=== PATIENT | female | born 1975 | race Caucasian/White ===

== ENCOUNTER 2016-05-27 13:10 | Emergency (ER) | payer OTHER ==
[~2016-05-27 13:10] MED LIST: ANXIETY MED PO; ARMOUR THYROID15 MG PO; BETABLOCKER PO; CYCLOBENZAPRINE10 MG PO; HYCODAN,HYDROME10 ML PO; MEDROL DOSEPAK4 MG PO; METHIMAZOLE5 M1 PO; NAPROSYN500 MG PO; NEURONTIN100 MG PO; NEURONTIN300 MG PO; NORCO 325 MG-101 TAB PO; NORCO 325 MG-51 TAB PO; OMNICEF300 MG PO; PARAFON FORTE500 MG PO; PREDNISONE20 M1 PO; PROPRANOLOL HCL10 MG PO; PROVENTIL0.09 MG/A1 INH; REQUIP0.5 MG PO; ROBITUSSIN AC 110 ML PO; TAPAZOLE PO; TESSALON PERLE100 M1 PO; THE MEDICINE S400 IU PO; VENTOLIN H0.09 MG/AC INH; VISTARIL25 MG PO; ZYRTEC10 MG PO
[2016-05-27 13:16] VITALS: BP 104/72
[2016-05-27] MEDS ORDERED: CEPHALEXIN500 M1 PO (15:13)
[2016-05-27] MEDS ORDERED: NAPROSYN500 MG PO (15:13)
[2016-05-27] MEDS ORDERED: BACTRIM DS 8001 TA1 PO (15:13)
== END 2016-05-27 15:19 | disposition home or self-care (01) ==
LOC: ED 13:10
DX: L02.611 Cutaneous abscess of right foot (principal); F17.200 Nicotine dependence, unspecified, uncomplicated

== ENCOUNTER 2016-05-30 12:33 | Emergency (ER) | payer OTHER ==
[~2016-05-30] VITALS: Ht 170.1 cm; Wt 51.7 kg
[~2016-05-30 12:33] MED LIST changes: +BACTRIM DS 8001 TA1 PO; +CEPHALEXIN500 M1 PO
[2016-05-30 13:06] VITALS: BP 122/80
[2016-05-30] MEDS ORDERED: HYDROCODONE BIT1 T11 PO (15:41)
== END 2016-05-30 15:49 | disposition home or self-care (01) ==
LOC: ED 12:33
DX: L02.611 Cutaneous abscess of right foot (principal); L03.115 Cellulitis of right lower limb; F17.200 Nicotine dependence, unspecified, uncomplicated

== ENCOUNTER → 2019-06-22 | Outpatient (CLI) | payer OTHER ==
[~2019-06-22] MED LIST changes: +AMINOPHYLLIN200 MG PO; +ANUSOL-HC25 MG R; +CEFUROXIME AXE500 MG PO; +HYDROCODONE BIT1 T11 PO
== END | disposition home or self-care (01) ==
LOC: MAMMO 08:30
DX: Z12.31 Encounter for screening mammogram for malignant neoplasm of breast (principal)

== ENCOUNTER 2019-06-30 12:39 | Emergency (ER) | payer OTHER ==
[~2019-06-30] VITALS: Ht 170.1 cm; Wt 51.7 kg
[~2019-06-30 12:39] MED LIST changes: -AMINOPHYLLIN200 MG PO; -ANUSOL-HC25 MG R; -CEFUROXIME AXE500 MG PO
[2019-06-30 12:46] VITALS: BP 116/60
[2019-06-30 13:20] LABS: BASO % 0.7 % (0.0-1.0); EOS # 0.1 10*3/uL (0.0-0.4); EOS % 1.8 % (1.0-4.0); HEMATOCRIT 37.5 % (37.0-47.0); LYMPH # 1.8 10*3/uL (1.3-4.4); LYMPH % 32.8 % (27.0-41.0); MEAN CELL VOLUME 89.9 fl (81.0-99.0); MEAN CORPUSCULAR HGB 31.2 pg (27.0-31.0); MEAN CORPUSCULAR HGB CONC 34.7 g/dl (33.0-37.0); MEAN PLATELET VOLUME 10.1 fl (9.6-12.3); MONO # 0.4 10*3/uL (0.1-1.0); NEUT # 3.1 10*3/uL (2.3-7.9); NEUT % 57.5 % (47.0-73.0); PLATELET COUNT AUTOMATED 242 10*3/uL (130-400); RED BLOOD COUNT 4.17 10*6/uL (4.10-5.10); RED CELL DISTRI WIDTH 11.9 % (0-14.5); WHITE BLOOD COUNT 5.4 10*3/uL (4.8-10.8)
[2019-06-30 13:30] LABS: INTERNATIONAL NORM RATIO 0.9 (2.0-3.5)
[2019-06-30 13:39] LABS: ALBUMIN 3.8 gm/dl (3.1-4.5); ALKALINE PHOSPHATASE 59 U/L (45-117); BUN 16 mg/dl (7-24); CHLORIDE 111 mmol/L (98-107); CREATININE 0.73 mg/dL (0.55-1.02); POTASSIUM 4.1 mmol/L (3.5-5.1); SGOT/AST 16 IU/L (3-35); SGPT/ALT 37 U/L (12-78); SODIUM 140 mmol/L (136-145); TOTAL PROTEIN 6.6 gm/dL (6.4-8.2)
[2019-06-30 14:00] LABS: BILIRUBIN NEGATIVE (NEGATIVE); BLOOD NEGATIVE (NEGATIVE); CLARITY SL CLOUDY (CLEAR); COLOR YELLOW (YELLOW); GLUCOSE NEGATIVE (NEGATIVE); KETONE NEGATIVE (NEGATIVE)
[2019-06-30 14:01] LABS: BACTERIA 1+; LEUKO ESTERASE TRACE (NEGATIVE); NITRITE NEGATIVE (NEGATIVE); UROBILINOGEN 0.2 E.U./dl (0.2-1.0); WBC 16-20 wbc/hpf (0-5)
[2019-06-30] MEDS ORDERED: ANUSOL-HC25 MG R (16:38)
[2019-06-30] MEDS ORDERED: CEFUROXIME AXE500 MG PO (16:38)
[2019-07-07] MEDS ORDERED: AMINOPHYLLIN200 MG PO (15:18)
== END 2019-06-30 16:47 | disposition home or self-care (01) ==
LOC: ED 12:39
PROVIDERS: Nurse Practitioner Family
DX: K64.9 Unspecified hemorrhoids (principal); N39.0 Urinary tract infection, site not specified; G62.9 Polyneuropathy, unspecified

== ENCOUNTER → 2019-07-09 | Day surgery (SDC) | payer OTHER ==
[~2019-07-09] VITALS: Ht 170.1 cm; Wt 51.7 kg
[~2019-07-09] MED LIST changes: +AMINOPHYLLIN200 MG PO; +ANUSOL-HC25 MG R; +CEFUROXIME AXE500 MG PO
[2019-07-09 08:07] VITALS: BP 99/62
[2019-07-09 08:55] VITALS: BP 88/45
[2019-07-09 09:08] VITALS: BP 91/65
[2019-07-09 09:25] VITALS: BP 101/65
== END | disposition home or self-care (01) ==
LOC: SDC 07-06 10:15
DX: K62.5 Hemorrhage of anus and rectum (principal); K63.5 Polyp of colon; F41.9 Anxiety disorder, unspecified; F32.9 Major depressive disorder, single episode, unspecified; Z79.899 Other long term (current) drug therapy; Z98.890 Other specified postprocedural states; Z82.5 Family history of asthma and other chronic lower respiratory diseases

== ENCOUNTER 2020-03-13 22:32 | Observation (INO) | payer OTHER ==
[~2020-03-13] VITALS: Ht 170.1 cm
--- NOTE | 2020-03-14 00:12 | NUR ---
PT RESTING IN BED WITH EYES CLOSED, NO DISTRESS NOTED, RESP EASY NON LABORED, RN WILL CONTINUE TO MONITOR
--- NOTE | 2020-03-14 03:03 | NUR ---
PT RESTING IN BED WITH EYES CLOSED, NO DISTRESS NOTED, RN WILL CONTINUE TO MONITOR
--- NOTE | 2020-03-14 03:04 | NUR ---
PT STILL UNABLE TO VOID
--- NOTE | 2020-03-14 04:32 | NUR ---
PT RESTING IN BED WITH EYES CLOSED, NO DISTRESS NOTED, RN WILL CONTINUE TO MONITOR
--- NOTE | 2020-03-14 05:30 | NUR ---
PT AMBULATING TO RESTROOM, STILL UNABLE TO VOID, NO URINE COLLECTED
[2020-03-14 13:45] VITALS: BP 100/80
--- NOTE | 2020-03-14 13:45 | NUR ---
The assessment has been completed. JUSTIN SMITH Time: 134 A 44 year old FEMALE admitted to under services of EDDIE SONG DO. Pt. arrived via ambulance from ER. Chief complaint: FROM HOME. PT STATES SHE WAS IN THE HOT TUB SMOKING WEED AND BECAME VERY ANXIOUS AND CALLED EMS.A/O X3. RESPS EASY AND NON LABORED. NO DISTRESS NOTED. JUSTIN SMITH
--- NOTE | 2020-03-14 15:26 | NUR ---
PT C/O 5/10 ACHING LEG PAIN.MEDICATED PER ORDER. RESPS EASY AND NON LABORED. SITTING UP IN BED WATCHING TV. CALL LIGHT WITHIN REACH.
--- NOTE | 2020-03-14 15:36 | NUR ---
ORTHOS: 110/84, 80 BPM 108/80, 82 BPM 114/82, 86 BPM
--- NOTE | 2020-03-14 16:26 | NUR ---
MEDICATION APPEARS EFFECTIVE. PT SLEEPING. RESPS EASY AND NON LABORED. CALL LIGHT WITHIN REACH.
--- NOTE | 2020-03-14 16:57 | NUR ---
MESSAGE LEFT W DR MUNIZ REGARDING NEW CONSULT
--- NOTE | 2020-03-15 04:05 | NUR ---
24 HR chart check completed.
--- NOTE | 2020-03-15 11:12 | NUR ---
Interactive Developer in to talk to patient. Patient states lives at HOME with BOYFRIEND, SON AND HIS GIRLFRIEND. There are NO steps in the home. Physician: AVANI Pharmacy: [facility] Home health services: NONE Patient's level of ADLs: INDEPENDENT Patient has working utilities: YES DME: NONE Follow-up physician's appointment after d/c: WILL BE MADE BY HOSPITALIST NURSE DIRECTOR ON DISCHARGE Does patient want to access PORTAL?: NO Discharge plan PT LIVES AT HOME WITH HER BOYFRIEND, HER SON AND HIS GIRLFRIEND AND IS INDEPENDENT IN HER CARE. DECLINES SHE WILL HAVE NEEDS ON DISCHARGE. PLAN IS TO RETURN HOME WHEN MEDICALLY STABLE. WILL CONTINUE TO FOLLOW. STATES SHE WILL HAVE A RIDE HOME.. COURTNEY SEBASTIAN
[2020-03-15 16:00] VITALS: BP 103/64
--- NOTE | 2020-03-15 17:54 | NUR ---
[facility] Discharge instructions reviewed with patient/family. Patient receptive and verbalizes understanding. Follow-up care arranged. Written instructions given to patient/family. CASEY LUGO
== END 2020-03-15 18:11 | disposition home or self-care (01) ==
LOC: ED 22:32 → EDHOLD 03-14 06:29 → 4E 03-14 06:29
PROVIDERS: ADMIT Emergency Medicine; ATTEND Emergency Medicine
DX: R55 Syncope and collapse (principal); N17.0 Acute kidney failure with tubular necrosis; D72.829 Elevated white blood cell count, unspecified; T40.7X1A Poisoning by cannabis (derivatives), accidental (unintentional), initial encounter; E87.1 Hypo-osmolality and hyponatremia; E11.65 Type 2 diabetes mellitus with hyperglycemia; E86.0 Dehydration; E11.42 Type 2 diabetes mellitus with diabetic polyneuropathy; G25.81 Restless legs syndrome; D75.1 Secondary polycythemia; F17.210 Nicotine dependence, cigarettes, uncomplicated

== ENCOUNTER 2021-06-08 13:25 | Emergency (ER) | payer OTHER ==
[~2021-06-08] VITALS: Ht 170.1 cm; Wt 49.9 kg
[~2021-06-08 13:25] MED LIST changes: +CIPRO500 MG PO
[2021-06-08 13:40] VITALS: BP 131/97
== END 2021-06-08 14:38 | disposition left against medical advice (07) ==
LOC: ED 13:25
DX: H92.02 Otalgia, left ear (principal); Z53.21 Procedure and treatment not carried out due to patient leaving prior to being seen by health care provider

== ENCOUNTER → 2021-11-23 | Outpatient (CLI) | payer OTHER ==
[2021-11-23 12:45] LABS: BASO % 0.4 % (0.0-1.0); EOS % 0.4 % (1.0-4.0); HEMATOCRIT 43.4 % (37.0-47.0); LYMPH # 1.9 10*3/uL (1.3-4.4); MEAN CELL VOLUME 92.7 fl (81.0-99.0); MEAN CORPUSCULAR HGB 31.4 pg (27.0-31.0); MEAN CORPUSCULAR HGB CONC 33.9 g/dl (33.0-37.0); MEAN PLATELET VOLUME 9.4 fl (9.6-12.3); MONO # 0.6 10*3/uL (0.1-1.0); NEUT # 6.5 10*3/uL (2.3-7.9); PLATELET COUNT AUTOMATED 265 10*3/uL (130-400); RED BLOOD COUNT 4.68 10*6/uL (4.10-5.10); RED CELL DISTRI WIDTH 12.5 % (0-14.5); WHITE BLOOD COUNT 9.2 10*3/uL (4.8-10.8)
== END | disposition home or self-care (01) ==
LOC: LAB 12:26
PROVIDERS: ATTEND Nurse Practitioner Women's Health
DX: N92.0 Excessive and frequent menstruation with regular cycle (principal); R53.83 Other fatigue

== ENCOUNTER → 2022-03-09 | Day surgery (SDC) | payer OTHER ==
[~2022-03-09] VITALS: Ht 170.1 cm; Wt 51.7 kg
[2022-03-09 09:05] VITALS: BP 94/62; BP 98/69
[2022-03-09 10:12] VITALS: BP 106/82
== END | disposition home or self-care (01) ==
LOC: SDC 03-06 08:00
PROVIDERS: ATTEND Surgery
DX: R19.4 Change in bowel habit (principal); F31.9 Bipolar disorder, unspecified; F41.9 Anxiety disorder, unspecified; F17.210 Nicotine dependence, cigarettes, uncomplicated

== ENCOUNTER → 2022-03-16 | Outpatient (CLI) | payer OTHER | END | disposition home or self-care (01) | LOC: US 12-25 10:30 | PROVIDERS: ATTEND Nurse Practitioner Women's Health | DX: N83.02 Follicular cyst of left ovary (principal); N83.01 Follicular cyst of right ovary; N94.6 Dysmenorrhea, unspecified; N92.0 Excessive and frequent menstruation with regular cycle ==

== ENCOUNTER → 2022-08-01 | Outpatient (CLI) | payer MEDICAID | END | disposition home or self-care (01) | LOC: RAD 13:37 | PROVIDERS: ATTEND Family Medicine | DX: M48.02 Spinal stenosis, cervical region (principal); M54.2 Cervicalgia; M25.512 Pain in left shoulder; M54.50 Low back pain, unspecified ==

== ENCOUNTER 2022-08-09 11:27 | Emergency (ER) | payer MEDICAID ==
[~2022-08-09] VITALS: Wt 58.1 kg
[2022-08-09 11:40] VITALS: BP 118/87
== END 2022-08-09 13:33 | disposition home or self-care (01) ==
LOC: ED 11:27
DX: S20.211A Contusion of right front wall of thorax, initial encounter (principal); F41.9 Anxiety disorder, unspecified; F31.9 Bipolar disorder, unspecified; Z98.51 Tubal ligation status; Z98.890 Other specified postprocedural states; F17.200 Nicotine dependence, unspecified, uncomplicated; W19.XXXA Unspecified fall, initial encounter; Y93.89 Activity, other specified; Y92.89 Other specified places as the place of occurrence of the external cause; Y99.8 Other external cause status

== ENCOUNTER → 2023-10-08 | Outpatient (CLI) | payer MEDICAID | LOC: RAD 16:38 | PROVIDERS: ATTEND Family Medicine | DX: M50.820 Other cervical disc disorders, mid-cervical region, unspecified level (principal); M47.812 Spondylosis without myelopathy or radiculopathy, cervical region; M48.02 Spinal stenosis, cervical region; M54.41 Lumbago with sciatica, right side ==

== ENCOUNTER → 2024-08-10 | Outpatient (CLI) | payer MEDICAID | END | disposition home or self-care (01) | LOC: US 10:00 | PROVIDERS: ATTEND Nurse Practitioner Women's Health | DX: D25.1 Intramural leiomyoma of uterus (principal); N92.6 Irregular menstruation, unspecified; R10.2 Pelvic and perineal pain ==

== ENCOUNTER → 2024-12-29 | Outpatient (CLI) | payer MEDICAID ==
[2024-12-29 14:16] LABS: BUN 10 mg/dl (9-23); FREE T4 1.18 ng/dl (0.89-1.76)
== END | disposition home or self-care (01) ==
LOC: LAB 13:29
PROVIDERS: ATTEND Nurse Practitioner
DX: F41.1 Generalized anxiety disorder (principal); F31.12 Bipolar disorder, current episode manic without psychotic features, moderate

== ENCOUNTER → 2025-01-14 | Outpatient (CLI) | payer MEDICAID | LOC: RAD 13:50 | PROVIDERS: ATTEND Chiropractor Orthopedic | DX: M47.22 Other spondylosis with radiculopathy, cervical region (principal); M48.02 Spinal stenosis, cervical region; M25.78 Osteophyte, vertebrae ==

== ENCOUNTER 2025-02-09 09:24 | Emergency (ER) | payer MEDICAID ==
[~2025-02-09] VITALS: Ht 170.1 cm; Wt 55.8 kg
[2025-02-09 09:32] VITALS: BP 124/90
[2025-02-09] MEDS ORDERED: Cyclobenzaprine Hydrochlorid 10 MG TAB PO ONE (10:40)
[2025-02-09] MEDS ORDERED: LIDO KING1 EACH T (10:44)
== END 2025-02-09 10:52 | disposition home or self-care (01) ==
LOC: ED 09:24
DX: M62.838 Other muscle spasm (principal); F41.9 Anxiety disorder, unspecified; F31.9 Bipolar disorder, unspecified; F17.210 Nicotine dependence, cigarettes, uncomplicated; Z98.51 Tubal ligation status